=== PATIENT | female | born 1955 | race Caucasian/White ===

== ENCOUNTER → 2018-07-20 | Outpatient (CLI) | payer MEDICARE, OTHER ==
[2018-07-20 13:54] LABS: BASOPHILS ABSOLUTE AUTO 0.04 K/mm3 (0.00-0.23); BASOPHILS PERCENT AUTO 1 % (0-2); EOSINOPHILS ABSOLUTE AUTO 0.05 K/mm3 (0.00-0.68); EOSINOPHILS PERCENT AUTO 1 % (0-6); Hematocrit 40.8 % (33.0-51.0); Hemoglobin 13.3 g/dL (11.5-16.0); IMMATURE GRAN ABSOLUTE AUTO 0.01 K/mm3 (0.00-0.10); IMMATURE GRAN PERCENT AUTO 0 % (0-1); LYMPHOCYTES ABSOLUTE AUTO 1.76 K/mm3 (0.84-5.20); LYMPHOCYTES PERCENT AUTO 25 % (21-46); MONOCYTES ABSOLUTE AUTO 0.47 K/mm3 (0.16-1.47); MONOCYTES PERCENT AUTO 7 % (4-13); Mean Corpuscular HGB 30.9 pg (26.0-34.0); Mean Corpuscular HGB Conc 32.6 g/dL (31.5-36.5); Mean Corpuscular Volume 95 fL (80-100); Mean Platelet Volume 10.6 fL (9.1-12.4); NEUTROPHILS ABSOLUTE AUTO 4.78 K/mm3 (1.96-9.15); NEUTROPHILS PERCENT AUTO 67 % (41-73); Platelet Count 224 K/mm3 (150-400); White Blood Cell Count 7.11 K/mm3 (4.00-11.30)
[2018-07-20 14:06] LABS: Alanine Aminotransfer (ALT/SGP 28 U/L (12-78); Albumin, Blood 4.2 g/dL (3.4-5.0); Albumin/Globulin Ratio 1.1 (0.8-1.8); Alk Phos 92 U/L (40-126); Anion Gap 12 mmol/L (6-16); Aspartate Aminotrans (AST/SGOT 25 U/L (12-37); Bilirubin, Total 0.3 mg/dL (0.1-1.0); Blood Urea Nitrogen 17 mg/dL (8-24); Bun/Creatinine Ratio 17.7 (12.0-20.0); CO2, Blood 23 mmol/L (21-32); Calcium, Blood 8.5 mg/dL (8.5-10.1); Chloride, Blood 105 mmol/L (98-108); Creatinine, Blood 0.96 mg/dL (0.40-1.00); Globulin, Blood 3.8 g/dL (2.2-4.0); Glomerular Filtration Rate 58 (60-); Glucose, Blood 92 mg/dL (70-99); Potassium, Blood 3.7 mmol/L (3.5-5.5); Sodium, Blood 140 mmol/L (136-145)
[2018-07-20 14:10] LABS: Troponin I <0.015 ng/mL (0.000-0.040)
== END ==
LOC: LAB SHORT 13:48 → LAB EV 13:48
PROVIDERS: Physician Assistant Surgical
DX: R07.81 Pleurodynia (principal)
CPT/HCPCS: 80053; 84484; 85025

== ENCOUNTER 2020-04-17 21:27 | Emergency (ER) | payer MEDICARE, OTHER ==
[~2020-04-17] VITALS: Ht 165.1 cm; Wt 75.3 kg
[2020-04-17 22:18] LABS: BASOPHILS ABSOLUTE AUTO 0.06 K/mm3 (0.00-0.23); BASOPHILS PERCENT AUTO 1 % (0-2); EOSINOPHILS ABSOLUTE AUTO 0.09 K/mm3 (0.00-0.68); EOSINOPHILS PERCENT AUTO 1 % (0-6); Hematocrit 40.1 % (33.0-51.0); Hemoglobin 13.1 g/dL (11.5-16.0); IMMATURE GRAN ABSOLUTE AUTO 0.02 K/mm3 (0.00-0.10); IMMATURE GRAN PERCENT AUTO 0 % (0-1); LYMPHOCYTES ABSOLUTE AUTO 2.13 K/mm3 (0.84-5.20); LYMPHOCYTES PERCENT AUTO 28 % (21-46); MONOCYTES ABSOLUTE AUTO 0.45 K/mm3 (0.16-1.47); MONOCYTES PERCENT AUTO 6 % (4-13); Mean Corpuscular HGB 30.1 pg (26.0-34.0); Mean Corpuscular HGB Conc 32.7 g/dL (31.5-36.5); Mean Corpuscular Volume 92 fL (80-100); Mean Platelet Volume 10.3 fL (9.1-12.4); NEUTROPHILS ABSOLUTE AUTO 4.86 K/mm3 (1.96-9.15); NEUTROPHILS PERCENT AUTO 64 % (41-73); Platelet Count 252 K/mm3 (150-400); RDW Coefficient Variation 13.6 % (11.7-14.2); RDW Standard Deviation 46.5 fL (35.1-46.3); Red Blood Cell Count 4.35 M/mm3 (3.80-5.20); White Blood Cell Count 7.61 K/mm3 (4.00-11.30)
[2020-04-17 22:42] LABS: Alanine Aminotransfer (ALT/SGP 29 U/L (12-78); Albumin, Blood 3.9 g/dL (3.4-5.0); Alk Phos 134 U/L (50-136); Anion Gap 7 mmol/L (6-16); Aspartate Aminotrans (AST/SGOT 24 U/L (12-37); Bilirubin, Total 0.3 mg/dL (0.1-1.0); Blood Urea Nitrogen 21 mg/dL (8-24); Bun/Creatinine Ratio 22.6 (12.0-20.0); CO2, Blood 24 mmol/L (21-32); Calcium, Blood 8.4 mg/dL (8.5-10.1); Chloride, Blood 113 mmol/L (98-108); Creatinine, Blood 0.93 mg/dL (0.40-1.00); Globulin, Blood 3.9 g/dL (2.2-4.0); Glomerular Filtration Rate >60 (60-); Glucose, Blood 107 mg/dL (70-99); Potassium, Blood 3.6 mmol/L (3.5-5.5); Sodium, Blood 144 mmol/L (136-145); Total Protein, Blood 7.8 g/dL (6.4-8.2); Troponin I <0.015 ng/mL (0.000-0.040)
[2020-04-17] MEDS ORDERED: Pravastatin Sod80 MG PO (23:27)
[2020-04-17] MEDS ORDERED: XARELTO20 MG PO (23:27)
[2020-04-17] MEDS ORDERED: PANT40 PO (23:28)
[2020-04-17] MEDS ORDERED: SERT100 PO (23:28)
[2020-04-17] MEDS ORDERED: ZOLP6.25 PO (23:29)
[2020-04-18] MEDS ORDERED: Levaquin750 MG PO (00:58)
== END 2020-04-18 01:58 | disposition home or self-care (01) ==
LOC: ER 21:27
PROVIDERS: Physician Assistant
DX: J18.9 Pneumonia, unspecified organism (principal); Z79.01 Long term (current) use of anticoagulants; Z79.899 Other long term (current) drug therapy; Z88.0 Allergy status to penicillin; Z88.8 Allergy status to other drugs, medicaments and biological substances; Z86.718 Personal history of other venous thrombosis and embolism
CPT/HCPCS: 36415; 71260; 80053; 84484; 85025; 85379; 93005; 93010; 96361; 96374-59; 99284-25; A9270; J3010; J7030; Q9967

== ENCOUNTER → 2021-03-30 | Outpatient (CLI) | payer MEDICARE ==
[~2021-03-30] MED LIST: Levaquin750 MG PO; PANT40 PO; Pravastatin Sod80 MG PO; SERT100 PO; XARELTO20 MG PO; ZOLP6.25 PO
== END ==
LOC: LAB SHORT 17:44
DX: L08.9 Local infection of the skin and subcutaneous tissue, unspecified (principal); Z88.0 Allergy status to penicillin; Z88.8 Allergy status to other drugs, medicaments and biological substances
CPT/HCPCS: 87070; 87205

== ENCOUNTER 2021-06-18 04:34 | Observation (INO) | payer MEDICARE, OTHER ==
[~2021-06-18] VITALS: Ht 165.1 cm; Wt 73.1 kg
[2021-06-18 04:55] LABS: BASOPHILS ABSOLUTE AUTO 0.06 K/mm3 (0.00-0.23); BASOPHILS PERCENT AUTO 1 % (0-2); EOSINOPHILS ABSOLUTE AUTO 0.11 K/mm3 (0.00-0.68); EOSINOPHILS PERCENT AUTO 1 % (0-6); Hematocrit 36.7 % (33.0-51.0); Hemoglobin 11.8 g/dL (11.5-16.0); IMMATURE GRAN ABSOLUTE AUTO 0.02 K/mm3 (0.00-0.10); IMMATURE GRAN PERCENT AUTO 0 % (0-1); LYMPHOCYTES ABSOLUTE AUTO 1.75 K/mm3 (0.84-5.20); LYMPHOCYTES PERCENT AUTO 22 % (21-46); MONOCYTES ABSOLUTE AUTO 0.54 K/mm3 (0.16-1.47); MONOCYTES PERCENT AUTO 7 % (4-13); Mean Corpuscular HGB 29.1 pg (26.0-34.0); Mean Corpuscular HGB Conc 32.2 g/dL (31.5-36.5); Mean Corpuscular Volume 91 fL (80-100); Mean Platelet Volume 9.9 fL (9.1-12.4); NEUTROPHILS PERCENT AUTO 68 % (41-73); Platelet Count 223 K/mm3 (150-400); RDW Coefficient Variation 14.2 % (11.7-14.2); RDW Standard Deviation 47.4 fL (35.1-46.3); Red Blood Cell Count 4.05 M/mm3 (3.80-5.20); White Blood Cell Count 7.88 K/mm3 (4.00-11.30)
[2021-06-18 05:18] LABS: Alanine Aminotransfer (ALT/SGP 46 U/L (12-78); Albumin, Blood 3.6 g/dL (3.4-5.0); Alk Phos 102 U/L (50-136); Anion Gap 8 mmol/L (6-16); Aspartate Aminotrans (AST/SGOT 37 U/L (12-37); Bilirubin, Total 0.3 mg/dL (0.1-1.0); Blood Urea Nitrogen 20 mg/dL (8-24); CO2, Blood 27 mmol/L (21-32); Calcium, Blood 8.4 mg/dL (8.5-10.1); Chloride, Blood 104 mmol/L (98-108); Creatinine, Blood 0.95 mg/dL (0.40-1.00); Globulin, Blood 3.7 g/dL (2.2-4.0); Glomerular Filtration Rate 58 (60-); Glucose, Blood 114 mg/dL (70-99); Sodium, Blood 139 mmol/L (136-145); Total Protein, Blood 7.3 g/dL (6.4-8.2); Troponin I <0.015 ng/mL (0.000-0.040)
[2021-06-18 09:07] LABS: CHOL/HDL RATIO 3.4; Cholesterol 192 mg/dL (50-200); HDL Cholesterol 56 mg/dL (>39); LDL/HDL RATIO 1.5; Low Density Lipoprotein Chol 81 mg/dL (0-110); Triglycerides 273 mg/dL (30-160); Very Low Density Lipoprot Chol 54 mg/dL (6-32)
--- NOTE | 2021-06-18 11:43 | NUR ---
TRANSFER UPDATE REPORT RECIEVED AT 1137 FROM ER NURSE FREDY.
[2021-06-18] MEDS ORDERED: Vitamin D1000 UNI1 PO (12:10)
[2021-06-18] MEDS ORDERED: CALCIUM 1,0001 EAC1 PO (12:10)
[2021-06-18] MEDS ORDERED: TOCO1000 PO (12:11)
--- NOTE | 2021-06-18 15:25 | NUR ---
TRNSFER UPDATE PT ARRIVED TO UNIT AT 1200 VIA WHEELCHAIR AND OCCOMPANIED BY 1 MEDICAL STAFF. PT ON RA UPON ARRIVAL. PT ABLE TRANSFER SELF FROM WHEELCHAIR TO HOSPITAL BED.
--- NOTE | 2021-06-18 15:28 | NUR ---
UPDATE PT O2 SATS >90% WHEN PT IS AWAKE. PT O2 SATS DROP TO MID 80'S PT WAS SLEEPING. THIS RN HAD 2L NC APPLIED FOR WHEN PT IS SLEEPING TO KEEP 02 SATS >92% WHILE SLEEPING. AT 1320, PT REPORTED BACK PAIN THAT RADIATED TO MID CHEST PRESSURE. BP AT THIS TIME ARE 107/40, PULSE OF 66, RESP OF 16 AND O2 SATS OF 94% ON 2L NC. PT REPORTS THAT "TURNING ON MY RIGHT SIDE SEEMS TO HELP."
--- NOTE | 2021-06-18 15:45 | NUR ---
UPDATE AT 1435 DR BLANDON VERBAL ORDER FOR GI COCKTAIL. PHARMACY CONTACTED THIS RN ABOUT THE PRESENCE OF PHENOBARBITAL THAT IS IN THE MEDICATION AND THAT THE PT HAS LISTED PHNOBARBITAL ON THE ALLERY LIST. THIS RN ASKED THE PT ABOUT ALLERGY, PT STATED "I GOT HIVES FROM IT WHEN I WAS A [employer]ES[employer] IN HIGH S[employer]OL." THIS RN FORWARDED THE PT'S ALLERGY TO DR BLANDON AND THE DR SAID TO GO AHEAD WITH THE GI COCKTAIL AND HAVE SOME BENADRYL PRN FOR A REACTION. PHARMACY CONTACTED BY THIS RN AND NOTIFIED.
--- NOTE | 2021-06-18 19:27 | NUR ---
SHIFT SUMMARY PT A/O X4 AND COOPERATIVE OF CARE. PT ANXIOUS AT TIMES DUE TO PAIN. PT REPORTS MID-BACK PAIN THAT RADIATES TO MID CHEST PRESSURE, HEAT PAD APPLIED TO BACK, OTHERWISE TREATED PER EMAR. VSS SINCE ARRIVAL TO UNIT WITH 02 SATS >92% ON RA WHEN PT IS AWAKE. WHEN PT IS SLEEPING AND ON RA, O2 SATS WOULD DROP TO THE MID 80'S, 2L NC APPLIED FOR WHEN PT IS SLEEPING. PT REPORTED DYSPNEA DURING CHEST PRESSURE EVENT STATING "DEEP BREATHS MAKE IT WORSE." PT BP DIP DOWN WHNE PT IS REPORTING BACK PAIN/CHEST PRESSURE. PT TO GO NPO AFTER MIDNIGHT FOR 1 DAY STRESS TEST IN THE MORNING.
--- NOTE | 2021-06-18 20:36 | NUR ---
ASSUMED CARE OF PATIENT AT APPROXIMATELY 1910 FROM LANDRY Sandoval RN. PATIENT ALERT AND ORIENTED X4. PATIENT REPORTS PAIN IN "BACK AND FRONT"; REQUESTED PAIN MEDICATION; PAIN WAS AN 8 AND LOWERED TO 5 AFTER IV MORPHINE. PATIENT INDEPENDENT IN ROOM. PATIENT DENIES NUMBNESS, TINGLING, DIZZINESS, AND NAUSESA. PIV X2 S/L. NPO AT MIDNIGHT FOR STRESS TEST IN AM. SR W/ BBB ON PAWEL; OXYGEN SATURATION ABOVE ROOM AIR TO 2LPM VIA NC WHEN SLEEPING. PATIENT REPORTS SHE HAD ORAL SURGERY W/ IMPLANTS YESTERDAY AND USING ORAJEL FOR MOUTH PAIN; ABLE TO EAT SLOWLY.
[2021-06-19 04:06] LABS: BASOPHILS ABSOLUTE AUTO 0.05 K/mm3 (0.00-0.23); BASOPHILS PERCENT AUTO 1 % (0-2); EOSINOPHILS ABSOLUTE AUTO 0.07 K/mm3 (0.00-0.68); EOSINOPHILS PERCENT AUTO 1 % (0-6); Hematocrit 35.2 % (33.0-51.0); Hemoglobin 11.2 g/dL (11.5-16.0); IMMATURE GRAN ABSOLUTE AUTO 0.02 K/mm3 (0.00-0.10); IMMATURE GRAN PERCENT AUTO 0 % (0-1); LYMPHOCYTES ABSOLUTE AUTO 1.55 K/mm3 (0.84-5.20); LYMPHOCYTES PERCENT AUTO 24 % (21-46); MONOCYTES ABSOLUTE AUTO 0.46 K/mm3 (0.16-1.47); MONOCYTES PERCENT AUTO 7 % (4-13); Mean Corpuscular HGB 29.3 pg (26.0-34.0); Mean Corpuscular HGB Conc 31.8 g/dL (31.5-36.5); Mean Corpuscular Volume 92 fL (80-100); Mean Platelet Volume 10.3 fL (9.1-12.4); NEUTROPHILS ABSOLUTE AUTO 4.42 K/mm3 (1.96-9.15); NEUTROPHILS PERCENT AUTO 67 % (41-73); Platelet Count 212 K/mm3 (150-400); RDW Coefficient Variation 14.4 % (11.7-14.2); RDW Standard Deviation 48.9 fL (35.1-46.3); Red Blood Cell Count 3.82 M/mm3 (3.80-5.20); White Blood Cell Count 6.57 K/mm3 (4.00-11.30)
[2021-06-19 04:30] LABS: Albumin, Blood 3.5 g/dL (3.4-5.0); Bilirubin, Total 0.3 mg/dL (0.1-1.0); Calcium, Blood 8.6 mg/dL (8.5-10.1); Creatinine, Blood 1.11 mg/dL (0.40-1.00); Globulin, Blood 3.4 g/dL (2.2-4.0); Potassium, Blood 4.1 mmol/L (3.5-5.5); Total Protein, Blood 6.9 g/dL (6.4-8.2)
--- NOTE | 2021-06-19 06:37 | NUR ---
PATIENT SLEPT ABOUT EIGHT HOURS LAST NIGHT; COMPLAINED OF PAIN IN BACK AND CHEST ONCE LAST NIGHT; IV MORPHINE GIVEN AND PATIENT FELL BACK TO SLEEP. NO OATHER ACUTE CHANGES TO REPORT.
--- NOTE | 2021-06-19 17:30 | NUR ---
DICSHARGE UPDATE PT DISCHARGE INFORMATION PACKET GONE OVER WITH PT AT 1600. PT DRESSED HERSELF AFTER IV'S WERE REMOVED. THIS RN TRANSFERED PT TO [facility] VIA WHEELCHAIR. PT BELONGINGS AND DISCHARGE INFO WITH PT DURING DISCHARGE.
== END 2021-06-19 16:20 | disposition home or self-care (01) ==
LOC: ER 04:34 → PCU 08:45 → ERHOLD 08:45 → PCU 11:55
PROVIDERS: Student in an Organized Health Care Education/Training Program; ADMIT Internal Medicine
DX: R07.89 Other chest pain (principal); I44.7 Left bundle-branch block, unspecified; I67.1 Cerebral aneurysm, nonruptured; Z88.0 Allergy status to penicillin; Z88.8 Allergy status to other drugs, medicaments and biological substances; Z87.891 Personal history of nicotine dependence; Z86.718 Personal history of other venous thrombosis and embolism; Z79.01 Long term (current) use of anticoagulants; Z86.69 Personal history of other diseases of the nervous system and sense organs
CPT/HCPCS: 36415; 71046; 71260; 78452; 80053; 80061; 83036; 83690; 84439; 84443; 84484; 85025; 93005; 93010; 93017; 93306; 93971; 94762; 96374-59; 96375-59; 96376; 99285-25; A9270; A9500; G0378; J0706; J2270; J2405; J2785; J3010; Q9967

== ENCOUNTER → 2022-12-20 | Outpatient (CLI) | payer MEDICARE, OTHER ==
[~2022-12-20] MED LIST changes: +CALCIUM 1,0001 EAC1 PO; +LOPE2C PO; +ONDA4ODT MM; +TOCO1000 PO; +Vitamin D1000 UNI1 PO
[2022-12-21 21:43] LABS: Adenovirus F 40/41 Not Detected (NOT DETECT); Astrovirus Not Detected (NOT DETECT); Campylobacter Sp Not Detected (NOT DETECT); Cryptosporidium Not Detected (NOT DETECT); Cyclospora Cayetanensis Not Detected (NOT DETECT); E. Coli O157 Not Detected (NOT DETECT); Entamoeba Histolytica Not Detected (NOT DETECT); Enteroaggregative E. coli-EAEC Not Detected (NOT DETECT); Enteropathogenic E. coli-EPEC Not Detected (NOT DETECT); Enterotoxigenic E. coli-ETEC Not Detected (NOT DETECT); Giardia Lamblia Not Detected (NOT DETECT); Norovirus GI/GII Not Detected (NOT DETECT); Plesiomonas Shigelloides Not Detected (NOT DETECT); Rotavirus A Not Detected (NOT DETECT); Salmonella Sp Not Detected (NOT DETECT); Sapovirus Not Detected (NOT DETECT); Shiga Toxin-prod E. coli-STEC Not Detected (NOT DETECT); Shigella/Enteroin E. coli-EIEC Not Detected (NOT DETECT); Vibrio Cholerae Not Detected (NOT DETECT); Vibrio Sp Not Detected (NOT DETECT); Yersinia Enterocolitica Not Detected (NOT DETECT)
== END | disposition home or self-care (01) ==
LOC: LAB SHORT 08:45 → LAB 08:45
PROVIDERS: Family Medicine
DX: K52.9 Noninfective gastroenteritis and colitis, unspecified (principal)
CPT/HCPCS: 82653; 83993; 87324; 87507

== ENCOUNTER → 2023-04-06 | Outpatient (CLI) | payer MEDICARE, OTHER ==
[~2023-04-06] MED LIST changes: +Prinivil10 MG PO; +XARELTO20 M1 PO
== END ==
LOC: LAB 15:40 → LAB SHORT 15:40
DX: R30.0 Dysuria (principal)
CPT/HCPCS: 87077; 87086; 87186

== ENCOUNTER 2023-04-12 15:52 | Inpatient (IN) | payer MEDICARE ==
[~2023-04-12] VITALS: Ht 165.1 cm; Wt 73.9 kg
[~2023-04-12 15:52] MED LIST changes: -Prinivil10 MG PO; -XARELTO20 M1 PO
[2023-04-12 16:51] LABS: BASOPHILS ABSOLUTE AUTO 0.09 K/mm3 (0.00-0.23); BASOPHILS PERCENT AUTO 1 % (0-2); EOSINOPHILS ABSOLUTE AUTO 0.01 K/mm3 (0.00-0.68); EOSINOPHILS PERCENT AUTO 0 % (0-6); Hematocrit 44.2 % (33.0-51.0); Hemoglobin 14.5 g/dL (11.5-16.0); IMMATURE GRAN ABSOLUTE AUTO 0.04 K/mm3 (0.00-0.10); IMMATURE GRAN PERCENT AUTO 0 % (0-1); LYMPHOCYTES ABSOLUTE AUTO 1.23 K/mm3 (0.84-5.20); LYMPHOCYTES PERCENT AUTO 10 % (21-46); MONOCYTES ABSOLUTE AUTO 0.63 K/mm3 (0.16-1.47); MONOCYTES PERCENT AUTO 5 % (4-13); Mean Corpuscular HGB 29.1 pg (26.0-34.0); Mean Corpuscular HGB Conc 32.8 g/dL (31.5-36.5); Mean Corpuscular Volume 89 fL (80-100); Mean Platelet Volume 10.3 fL (9.1-12.4); NEUTROPHILS ABSOLUTE AUTO 10.87 K/mm3 (1.96-9.15); NEUTROPHILS PERCENT AUTO 84 % (41-73); Platelet Count 343 K/mm3 (150-400); RDW Coefficient Variation 14.6 % (11.7-14.2); RDW Standard Deviation 46.5 fL (35.1-46.3); Red Blood Cell Count 4.99 M/mm3 (3.80-5.20); White Blood Cell Count 12.87 K/mm3 (4.00-11.30)
[2023-04-12 17:08] LABS: Albumin, Blood 4.3 g/dL (3.4-5.0); Bilirubin, Total 0.8 mg/dL (0.1-1.0); Bun/Creatinine Ratio 30.8 (12.0-20.0); Calcium, Blood 9.3 mg/dL (8.5-10.1); Creatinine, Blood 1.07 mg/dL (0.40-1.00); Globulin, Blood 4.5 g/dL (2.2-4.0); Potassium, Blood 3.5 mmol/L (3.5-5.5); Total Protein, Blood 8.8 g/dL (6.4-8.2)
[2023-04-12 20:47] LABS: Source, Urine Clean Catch
[2023-04-12 20:57] LABS: Bilirubin, Urine Neg (Neg); Blood, Urine Neg (Neg); Glucose Qualitative, Urine Neg (Neg); Ketones, Urine 1+ (Neg); Leukocyte Esterase, Urine Neg (Neg); Nitrite, Urine Neg (Neg); Protein, Urine 1+ (Neg); Specific Gravity, Urine 1.015 (1.003-1.022); Urobilinogen, Urine NORM (Normal)
[2023-04-12] MEDS ORDERED: Prinivil10 MG PO (20:57)
[2023-04-12] MEDS ORDERED: XARELTO20 M1 PO (20:58)
[2023-04-12 21:12] LABS: Appearance, Urine Clear (Clear); Color, Urine Pale Yellow (P-Yellow)
[2023-04-13 00:34] LABS: Anti-Xa UFH, PHA Monitoring <0.10 IU/mL; International Normalized Ratio 1.14; Prothrombin Time Results 11.9 Sec (9.7-11.5)
[2023-04-13 02:07] LABS: Influenza A, PCR NEGATIVE (NEGATIVE); Influenza B, PCR NEGATIVE (NEGATIVE); Resp Syncytial Virus, PCR NEGATIVE (NEGATIVE); SARS-Cov-2 (COVID-19) PCR, MMC NEGATIVE (NEGATIVE)
[2023-04-13 03:23] VITALS: BP 145/59
--- NOTE | 2023-04-13 04:36 | NUR ---
PT ARRIVED TO THE UNIT AT AROUND 0350. PT UP AD BRUNILDA, WALKED FROM [facility], PT APPEARED TO HAVE A STEADY GAIT. PT A&O x4, VSS, AFEBRILE. PT ADMITTED FOR DIARRHEA, N/V, INCREASED WEAKNESS, DYSURIA, UTI WITH ESBL. PT PLEASANT AND COOPERATIVE WITH CARE PROVIDED. NO SKIN ISSUES NOTED DURING 2 RN SKIN ASSESSMENT. PT ON RA, RESP EVEN AND UNLABORED. PT COMPLIANT WITH SCD's. PT ON A HEPARIN DRIP. NO ADVERSE REACTIONS NOTED. PT ABLE TO MAKE NEEDS KNOWN. CALL LIGHT WITHIN REACH, WCTM.
[2023-04-13 10:49] LABS: BASOPHILS ABSOLUTE AUTO 0.06 K/mm3 (0.00-0.23); BASOPHILS PERCENT AUTO 1 % (0-2); EOSINOPHILS ABSOLUTE AUTO 0.03 K/mm3 (0.00-0.68); EOSINOPHILS PERCENT AUTO 0 % (0-6); Hematocrit 35.8 % (33.0-51.0); Hemoglobin 11.7 g/dL (11.5-16.0); IMMATURE GRAN ABSOLUTE AUTO 0.04 K/mm3 (0.00-0.10); IMMATURE GRAN PERCENT AUTO 1 % (0-1); LYMPHOCYTES ABSOLUTE AUTO 1.52 K/mm3 (0.84-5.20); LYMPHOCYTES PERCENT AUTO 19 % (21-46); MONOCYTES PERCENT AUTO 6 % (4-13); Mean Corpuscular HGB 29.3 pg (26.0-34.0); Mean Corpuscular HGB Conc 32.7 g/dL (31.5-36.5); Mean Corpuscular Volume 90 fL (80-100); NEUTROPHILS ABSOLUTE AUTO 5.77 K/mm3 (1.96-9.15); NEUTROPHILS PERCENT AUTO 73 % (41-73); Platelet Count 225 K/mm3 (150-400); RDW Coefficient Variation 14.6 % (11.7-14.2); RDW Standard Deviation 47.7 fL (35.1-46.3); White Blood Cell Count 7.92 K/mm3 (4.00-11.30)
[2023-04-13 11:07] LABS: Bun/Creatinine Ratio 21.7 (12.0-20.0); Calcium, Blood 8.3 mg/dL (8.5-10.1); Creatinine, Blood 0.83 mg/dL (0.40-1.00); Potassium, Blood 3.1 mmol/L (3.5-5.5)
[2023-04-13 12:10] LABS: Adenovirus F 40/41 Not Detected (NOT DETECT); Astrovirus Not Detected (NOT DETECT); Campylobacter Sp Not Detected (NOT DETECT); Cryptosporidium Not Detected (NOT DETECT); Cyclospora Cayetanensis Not Detected (NOT DETECT); E. Coli O157 Not Detected (NOT DETECT); Entamoeba Histolytica Not Detected (NOT DETECT); Enteroaggregative E. coli-EAEC Not Detected (NOT DETECT); Enteropathogenic E. coli-EPEC Not Detected (NOT DETECT); Enterotoxigenic E. coli-ETEC Not Detected (NOT DETECT); Giardia Lamblia Not Detected (NOT DETECT); Norovirus GI/GII Not Detected (NOT DETECT); Plesiomonas Shigelloides Not Detected (NOT DETECT); Rotavirus A Not Detected (NOT DETECT); Salmonella Sp Not Detected (NOT DETECT); Sapovirus Not Detected (NOT DETECT); Shiga Toxin-prod E. coli-STEC Not Detected (NOT DETECT); Shigella/Enteroin E. coli-EIEC Not Detected (NOT DETECT); Vibrio Cholerae Not Detected (NOT DETECT); Vibrio Sp Not Detected (NOT DETECT); Yersinia Enterocolitica Not Detected (NOT DETECT)
[2023-04-13 16:17] VITALS: BP 126/60
[2023-04-13 20:28] VITALS: BP 124/56
[2023-04-13 22:06] LABS: Hematocrit 33.2 % (33.0-51.0); Hemoglobin 10.8 g/dL (11.5-16.0)
[2023-04-14 04:23] VITALS: BP 136/66
[2023-04-14 06:28] LABS: BASOPHILS ABSOLUTE AUTO 0.05 K/mm3 (0.00-0.23); BASOPHILS PERCENT AUTO 1 % (0-2); EOSINOPHILS ABSOLUTE AUTO 0.04 K/mm3 (0.00-0.68); EOSINOPHILS PERCENT AUTO 1 % (0-6); Hematocrit 32.7 % (33.0-51.0); Hemoglobin 10.5 g/dL (11.5-16.0); IMMATURE GRAN ABSOLUTE AUTO 0.01 K/mm3 (0.00-0.10); IMMATURE GRAN PERCENT AUTO 0 % (0-1); LYMPHOCYTES ABSOLUTE AUTO 1.18 K/mm3 (0.84-5.20); LYMPHOCYTES PERCENT AUTO 21 % (21-46); MONOCYTES ABSOLUTE AUTO 0.39 K/mm3 (0.16-1.47); MONOCYTES PERCENT AUTO 7 % (4-13); Mean Corpuscular HGB 28.7 pg (26.0-34.0); Mean Corpuscular HGB Conc 32.1 g/dL (31.5-36.5); Mean Corpuscular Volume 89 fL (80-100); Mean Platelet Volume 10.6 fL (9.1-12.4); NEUTROPHILS ABSOLUTE AUTO 3.96 K/mm3 (1.96-9.15); NEUTROPHILS PERCENT AUTO 70 % (41-73); Platelet Count 181 K/mm3 (150-400); RDW Coefficient Variation 14.8 % (11.7-14.2); RDW Standard Deviation 48.6 fL (35.1-46.3); Red Blood Cell Count 3.66 M/mm3 (3.80-5.20); White Blood Cell Count 5.63 K/mm3 (4.00-11.30)
[2023-04-14 06:41] LABS: Albumin, Blood 3.3 g/dL (3.4-5.0); Albumin/Globulin Ratio 1.1 (0.8-1.8); Bilirubin, Total 0.4 mg/dL (0.1-1.0); Bun/Creatinine Ratio 13.3 (12.0-20.0); Calcium, Blood 8.4 mg/dL (8.5-10.1); Creatinine, Blood 0.83 mg/dL (0.40-1.00); Globulin, Blood 3.1 g/dL (2.2-4.0); Potassium, Blood 3.3 mmol/L (3.5-5.5)
[2023-04-14 06:42] LABS: Total Protein, Blood 6.4 g/dL (6.4-8.2)
[2023-04-14 07:23] VITALS: BP 136/66
--- NOTE | 2023-04-14 07:31 | NUR ---
DISCONTINUED HEPARIN DRIP AT 0723. VERIFIED BY RN ANALYN.
[2023-04-14 08:05] LABS: BASOPHILS ABSOLUTE AUTO 0.03 K/mm3 (0.00-0.23); BASOPHILS PERCENT AUTO 1 % (0-2); EOSINOPHILS ABSOLUTE AUTO 0.03 K/mm3 (0.00-0.68); EOSINOPHILS PERCENT AUTO 1 % (0-6); Hematocrit 32.5 % (33.0-51.0); Hemoglobin 10.7 g/dL (11.5-16.0); IMMATURE GRAN ABSOLUTE AUTO 0.02 K/mm3 (0.00-0.10); IMMATURE GRAN PERCENT AUTO 0 % (0-1); LYMPHOCYTES ABSOLUTE AUTO 1.23 K/mm3 (0.84-5.20); LYMPHOCYTES PERCENT AUTO 22 % (21-46); MONOCYTES ABSOLUTE AUTO 0.36 K/mm3 (0.16-1.47); MONOCYTES PERCENT AUTO 6 % (4-13); Mean Corpuscular HGB Conc 32.9 g/dL (31.5-36.5); Mean Corpuscular Volume 88 fL (80-100); Mean Platelet Volume 10.2 fL (9.1-12.4); NEUTROPHILS ABSOLUTE AUTO 4.02 K/mm3 (1.96-9.15); NEUTROPHILS PERCENT AUTO 71 % (41-73); Platelet Count 186 K/mm3 (150-400); RDW Coefficient Variation 14.8 % (11.7-14.2); RDW Standard Deviation 47.5 fL (35.1-46.3); Red Blood Cell Count 3.69 M/mm3 (3.80-5.20); White Blood Cell Count 5.69 K/mm3 (4.00-11.30)
[2023-04-14 09:35] LABS: Albumin, Blood 3.4 g/dL (3.4-5.0); Albumin/Globulin Ratio 1.1 (0.8-1.8); Bilirubin, Total 0.4 mg/dL (0.1-1.0); Bun/Creatinine Ratio 13.7 (12.0-20.0); Calcium, Blood 8.5 mg/dL (8.5-10.1); Creatinine, Blood 0.8 mg/dL (0.40-1.00); Globulin, Blood 3.2 g/dL (2.2-4.0); Potassium, Blood 3.3 mmol/L (3.5-5.5); Total Protein, Blood 6.6 g/dL (6.4-8.2)
[2023-04-14] MEDS ORDERED: BANATROL PLUS1 EAC1 PO (12:34)
[2023-04-14] MEDS ORDERED: VISBIOME 112.51 EACH PO (12:35)
[2023-04-14 14:45] VITALS: BP 134/62
--- NOTE | 2023-04-14 18:00 | NUR ---
SHIFT SUMMARY: PATIENT A/OX4. ANSWER TO QUESTIONS APPROPRIATELY AND ABLE TO MAKE NEEDS KNOWN. PATIENT CALM, PLEASANT AND COOPERATIVE c CARE PROVIDED. PATIENT DENIES CP/PRESSURE, SOB AND DIZZINESS. PATIENT REPORTS NAUSEA THIS AM, BUT NO VOMITING. MEDICATED c NAUSEA MEDS PER EMAR c GOOD EFFECT. PATIENT IS EATING AND DRINKING WELL AND NO BM THIS SHIFT. PATIENT RECEIVED SCHEDULED MEDS PER EMAR. PATIENT DECLINED TO GO HOME PER PATIENT "I'M NOT WELL ENOUGH TO GO HOME AND I LIVE BY MYSELF AT HOME AND DOCTOR SAID I CAN STAY FOR 2 MORE DAYS." NOTIFIED [address] VICK REGARDING THIS ISSUES. PATIENT APPEAL DISCHARGE TODAY. PATIENT HAD SHOWER AND LINEN CHANGED c MINIMAL ASSISTANCE. PATIENT HAS BEEN AMBULATING TO BATHROOM c SBA T/O SHIFT. VITAL SIGNS REVIEWED. CALL LIGHT IN REACH.
[2023-04-14 20:00] VITALS: BP 104/44
[2023-04-14 21:21] VITALS: BP 132/60
[2023-04-15 02:46] VITALS: BP 114/46
--- NOTE | 2023-04-15 05:06 | NUR ---
SHIFT SUMMARY PT A&O X4, COOPERATIVE WITH CARE. PT ANXIOUS OVER BEING DISCHARGED FROM THE HOSPITAL AND STATES SHE IS NOT WELL. NO COMPLAINTS OF N/V THIS SHIFT. PT DESCRIBES ADB PAIN THAT MAGANA. TYLENOL EFFECTIVE FOR PAIN MANAGEMENT. SBA TO BATHROOM WITH FWW. BED KEPT IN LOWEST POSITION IWTH CALL LIGHT WITHIN REACH. WILL CONTINUE TO MONITOR UNTIL END OF SHIFT.
[2023-04-15 05:56] LABS: BASOPHILS ABSOLUTE AUTO 0.04 K/mm3 (0.00-0.23); BASOPHILS PERCENT AUTO 1 % (0-2); EOSINOPHILS ABSOLUTE AUTO 0.04 K/mm3 (0.00-0.68); EOSINOPHILS PERCENT AUTO 1 % (0-6); Hematocrit 32.9 % (33.0-51.0); Hemoglobin 10.5 g/dL (11.5-16.0); IMMATURE GRAN ABSOLUTE AUTO 0.02 K/mm3 (0.00-0.10); IMMATURE GRAN PERCENT AUTO 0 % (0-1); LYMPHOCYTES ABSOLUTE AUTO 1.17 K/mm3 (0.84-5.20); LYMPHOCYTES PERCENT AUTO 19 % (21-46); MONOCYTES ABSOLUTE AUTO 0.41 K/mm3 (0.16-1.47); MONOCYTES PERCENT AUTO 7 % (4-13); Mean Corpuscular HGB 28.9 pg (26.0-34.0); Mean Corpuscular HGB Conc 31.9 g/dL (31.5-36.5); Mean Corpuscular Volume 91 fL (80-100); Mean Platelet Volume 10.4 fL (9.1-12.4); NEUTROPHILS ABSOLUTE AUTO 4.48 K/mm3 (1.96-9.15); NEUTROPHILS PERCENT AUTO 73 % (41-73); Platelet Count 193 K/mm3 (150-400); RDW Coefficient Variation 14.8 % (11.7-14.2); RDW Standard Deviation 49.2 fL (35.1-46.3); Red Blood Cell Count 3.63 M/mm3 (3.80-5.20); White Blood Cell Count 6.16 K/mm3 (4.00-11.30)
[2023-04-15 06:28] LABS: Albumin, Blood 3.1 g/dL (3.4-5.0); Albumin/Globulin Ratio 0.9 (0.8-1.8); Bilirubin, Total 0.3 mg/dL (0.1-1.0); Bun/Creatinine Ratio 15.9 (12.0-20.0); Calcium, Blood 8.6 mg/dL (8.5-10.1); Creatinine, Blood 0.88 mg/dL (0.40-1.00); Globulin, Blood 3.3 g/dL (2.2-4.0); Potassium, Blood 3.5 mmol/L (3.5-5.5); Total Protein, Blood 6.4 g/dL (6.4-8.2)
[2023-04-15 07:59] VITALS: BP 114/69
--- NOTE | 2023-04-15 15:46 | NUR ---
SHIFT SUMMARY: NO NEW ACUTE CHANGES IN PATIENT CONDITION THIS SHIFT. PATIENT REPORTS "I FEEL SO MUCH BETTER TODAY COMPARED YESTERDAY, BUT STILL FEELING FEAR AND ANXIETY TO GO HOME BY MYSELF." PATIENT REPORTS "I HAVE A SON LIVES IN THE ARE[place], BUT HE WORKS AND HARDLY SEE HIM." PATIENT WORKS c PT MOBILITY IN ROOM TODAY, TOLERATING WELL. PT RECOMMENDED HH SERVICES. PATIENT DENIES CP/PRESSURE, N/V, DIZZINESS AND SOB. PATIENT REPORTS TENDERNESS TO ABDOMEN. PATIENT HAS BEEN AMBULATING TO BATHROOM c SBA/FWW AND HAD ONE SOFT BROWN BM THIS SHIFT. PATIENT IS EATING AND DRINKING WELL. PATIENT RECEIVED SCHEDULED MEDS PER EMAR. VITAL SIGNS REVIEWED. NO IV ACCESS PER ORDER. CALL LIGHT IN REACH.
[2023-04-15 19:36] VITALS: BP 126/60
[2023-04-16 03:17] VITALS: BP 143/63
[2023-04-16 07:35] VITALS: BP 145/68
--- NOTE | 2023-04-16 17:59 | NUR ---
SHIFT SUMMARY PT AOX4, INDEPENDENT IN THE ROOM. MEDICATED FOR A RIVERS PER THE EMAR. TOOK A SHOWER TODAY AND TOLERATED IT WELL. NO OTHER COMPLAINTS FROM THE PT. CALL LIGHT WITHIN REACH, BED IN THE LOWEST POSITION. WILL REPORT TO ONCOMING NURSE.
[2023-04-16 19:53] VITALS: BP 144/60
--- NOTE | 2023-04-17 03:47 | NUR ---
SHIFT SUMMARY PT A&O X4, CALM AND COOPERATIVE WITH CARE. COMPLAINTS OF A HEADACHE THIS SHIFT, MEDICATED PER EMAR. PT AMBULATING TO BATHROOM WITHOUT DIFICULTY. NO N/V/D THIS SHIFT. NO ACUTE CHANGES OVERNIGHT. BED KEPT IN LOWEST POSITION IWTH CALL LIGHT WITHIN REACH. WILL CONTINUE TO MONITOR.
[2023-04-17 05:30] VITALS: BP 139/58
[2023-04-17 07:57] VITALS: BP 147/67
--- NOTE | 2023-04-17 17:02 | NUR ---
SHIFT/DISCHARGE SUMMARY Pt remains A&O x3 this shift. VSS. Resp even non labored on RA. PO Tylenol effective for headace. Ambulating independently to bathroom. Pt states soft formed stool this am. Voiding without difficulty. All discharge instructions reviewed with return verbal understanding. Pt states CM ordered walker with basket to be delivered to her home. Pt to lobby via [facility]. Son at bedside for transportation.
== END 2023-04-17 16:57 | disposition home health service (06) | DRG 300 ==
LOC: ER 15:52 → MEDS 15:53 → ENPENDDIS 04-14 11:41 → MEDS 04-17 16:57
PROVIDERS: Emergency Medicine; Hospitalist; Physician Assistant; Student in an Organized Health Care Education/Training Program; ADMIT Internal Medicine
DX: I74.11 Embolism and thrombosis of thoracic aorta (principal); G93.40 Encephalopathy, unspecified; N18.9 Chronic kidney disease, unspecified; R19.7 Diarrhea, unspecified; D72.829 Elevated white blood cell count, unspecified; D63.1 Anemia in chronic kidney disease; E87.6 Hypokalemia; Z88.0 Allergy status to penicillin; Z88.8 Allergy status to other drugs, medicaments and biological substances; Z87.891 Personal history of nicotine dependence; Z86.711 Personal history of pulmonary embolism; Z60.2 Problems related to living alone; Z79.01 Long term (current) use of anticoagulants; Z22.358 Carrier of other Enterobacterales; Z86.718 Personal history of other venous thrombosis and embolism; Z11.52 Encounter for screening for COVID-19
CPT/HCPCS: 0241U; 36415; 51701; 71045; 74177; 80048; 80053; 83605; 83880; 85014; 85018; 85025; 85520; 85610; 85730; 87040; 87324; 87507; 93005; 93010; 96361; 96365; 96366; 96367; 96376; 97110-CQ; 97116; 97116-CQ; 97161; 97165; 97530; 97535; 99285-25; A9270; G0008; G0378; J0694; J1644; J7030; P9612; Q2036; Q9967

== ENCOUNTER → 2023-04-26 | Outpatient (CLI) | payer MEDICARE, OTHER ==
[~2023-04-26] MED LIST changes: +BANATROL PLUS1 EAC1 PO; +Prinivil10 MG PO; +VISBIOME 112.51 EACH PO; +XARELTO20 M1 PO
== END | disposition home or self-care (01) ==
LOC: LAB 12:52 → LAB SHORT 12:52
DX: R19.7 Diarrhea, unspecified (principal)
CPT/HCPCS: 83993

== ENCOUNTER → 2023-06-27 | Outpatient (CLI) | payer MEDICARE, OTHER ==
[2023-06-29 12:52] LABS: C DIFFICILE DNA POSITIVE (Negative)
== END ==
LOC: LAB 20:24 → LAB SHORT 20:24
PROVIDERS: Family Medicine
DX: K52.9 Noninfective gastroenteritis and colitis, unspecified (principal)
CPT/HCPCS: 87324; 87493

== ENCOUNTER → 2024-06-19 | Outpatient (CLI) | payer MEDICARE | LOC: LAB SHORT 11:45 → LAB 11:45 | DX: R30.0 Dysuria (principal) | CPT/HCPCS: 87086 ==

== ENCOUNTER → 2025-02-05 | Outpatient (CLI) | payer MEDICARE | LOC: LAB 14:30 → LAB SHORT 14:30 | DX: R30.0 Dysuria (principal) | CPT/HCPCS: 87086 ==